=== PATIENT | female | born 1985 | race Caucasian/White ===

== ENCOUNTER 2020-12-12 16:14 | Outpatient (CLI) | payer BC ==
[2020-12-12 16:58] LABS: HEMOGLOBIN 11.5 gm/dl (12.3-15.3); RED BLOOD COUNT 4.54 M/UL (4.00-5.10); WHITE BLOOD COUNT 8.5 K/UL (4.5-11.0)
[2020-12-12 17:13] LABS: BUN/CREATININE RATIO 11 (0-10)
== END 2020-12-12 18:40 | disposition home or self-care (01) ==
LOC: GENOP 16:14
PROVIDERS: Obstetrics & Gynecology
DX: O16.3 Unspecified maternal hypertension, third trimester (principal); O36.8130 Decreased fetal movements, third trimester, not applicable or unspecified; O99.891 Other specified diseases and conditions complicating pregnancy; M19.90 Unspecified osteoarthritis, unspecified site; M54.9 Dorsalgia, unspecified; O99.283 Endocrine, nutritional and metabolic diseases complicating pregnancy, third trimester; E28.2 Polycystic ovarian syndrome; O99.613 Diseases of the digestive system complicating pregnancy, third trimester; K58.9 Irritable bowel syndrome, unspecified; Z3A.33 33 weeks gestation of pregnancy
CPT/HCPCS: 80053; 82570; 84156; 85025; G0463

== ENCOUNTER 2020-12-31 21:17 | Outpatient (CLI) | payer BC | END 2021-01-01 00:31 | disposition home or self-care (01) | LOC: GENOP 21:17 | DX: O99.891 Other specified diseases and conditions complicating pregnancy (principal); M54.5 Low back pain; Z3A.36 36 weeks gestation of pregnancy; O13.3 Gestational [pregnancy-induced] hypertension without significant proteinuria, third trimester; O24.419 Gestational diabetes mellitus in pregnancy, unspecified control; O99.283 Endocrine, nutritional and metabolic diseases complicating pregnancy, third trimester; E28.2 Polycystic ovarian syndrome; O99.613 Diseases of the digestive system complicating pregnancy, third trimester; K58.9 Irritable bowel syndrome, unspecified | CPT/HCPCS: 81001; 82962; G0463 ==

== ENCOUNTER 2021-01-08 16:16 | Inpatient (IN) | payer BC ==
[~2021-01-08] VITALS: Ht 157.5 cm; Wt 102.1 kg
[2021-01-08 17:11] LABS: HEMOGLOBIN 11.4 gm/dl (12.3-15.3); RED BLOOD COUNT 4.43 M/UL (4.00-5.10); WHITE BLOOD COUNT 7.1 K/UL (4.5-11.0)
[2021-01-09] MEDS ORDERED: CLARITIN10 M1 PO (12:43)
[2021-01-09] MEDS ORDERED: PRENATAL 19 CH1 EAC1 PO (12:44)
[2021-01-09] MEDS ORDERED: TUMS DUAL ACTI1 EACH PO (12:44)
[2021-01-09] MEDS ORDERED: DOCUSATE SODIU100 MG PO (15:22)
[2021-01-09] MEDS ORDERED: IBUPROFEN800 MG PO (15:22)
[2021-01-10 06:54] LABS: HEMOGLOBIN 10.1 gm/dl (12.3-15.3)
== END 2021-01-10 10:28 | disposition home or self-care (01) | DRG 807 ==
LOC: GENOP 16:16 → OB 16:48
PROVIDERS: ADMIT Obstetrics & Gynecology
PROC: 4A1HXCZ Monitoring of Products of Conception, Cardiac Rate, External Approach (ICD-10-PCS; 2021-01-08)
PROC: 10E0XZZ Delivery of Products of Conception, External Approach (ICD-10-PCS; principal; 2021-01-09)
PROC: 10907ZC Drainage of Amniotic Fluid, Therapeutic from Products of Conception, Via Natural or Artificial Opening (ICD-10-PCS; 2021-01-09)
PROC: 0HQ9XZZ Repair Perineum Skin, External Approach (ICD-10-PCS; 2021-01-09)
PROC: 0UQMXZZ Repair Vulva, External Approach (ICD-10-PCS; 2021-01-09)
DX: O24.420 Gestational diabetes mellitus in childbirth, diet controlled (principal); Z37.0 Single live birth; O13.4 Gestational [pregnancy-induced] hypertension without significant proteinuria, complicating childbirth; Z3A.36 36 weeks gestation of pregnancy; Z20.822 Contact with and (suspected) exposure to COVID-19; O70.0 First degree perineal laceration during delivery
CPT/HCPCS: 36415; 51702; 81001; 82800; 82962; 85014; 85018; 85025; 90471; 90715; J2405; J2590; J7030